=== PATIENT | female | born 1975 | race Hispanic/Latino ===

== ENCOUNTER → 2021-04-17 | Day surgery (SDC) | payer OTHER ==
[2021-04-14 13:05] LABS: ANION GAP 14.7 mmol/L (8-16); BLOOD UREA NITROGEN 5 mg/dL (7-26); BUN/CREATININE RATIO 7 (6-25); CALCIUM 9.4 mg/dL (8.4-10.2); CARBON DIOXIDE 26 mmol/L (22-29); CHLORIDE 102 mmol/L (98-107); EST GLOMERULAR FILTRATION RATE > 60 ML/MIN (60-); GLUCOSE 99 mg/dL (74-118); POTASSIUM 3.7 mmol/L (3.5-5.1); SODIUM 139 mmol/L (136-145)
[~2021-04-17] MED LIST: ACETAMINOPHEN 1000 MG/100 ML 100 ML IV ONE; ALEVE220 M1 PO; CLONAZEPAM1 MG PO; CRESTOR10 MG PO; DEXAMETHASONE SOD PHOS INJ 4 MG/ML VIAL ONE; FENTANYL CITRATE/PF 100MCG/2 ML INJ ONE; HYDROMORPHONE 1MG/1ML INJ ONE; IBUPROFEN800 MG PO; IRON PO; LIDOCAINE 2%/ EPINEPHRINE 20ML MDV ONE; LIDOCAINE HCL 2% LOCAL INJ 5 ML SDV VIAL INJ ONE; LISINOPRIL-HCT1 EAC1 PO; MIDAZOLAM HCL 2 MG/2 ML VIAL ONE; MORPHINE SULFATE INJ 10 MG/ML ONE; ONDANSETRON HCL INJ 2MG/ML 2ML 2 MG/ML VIAL ONE; OTEZLA30 MG PO; POVIDONE IODINE 0.05% 0.05 % ML PO ONE; PROPOFOL IV EMULSION 10 MG/ML 20 ML VIAL ONE; ROPIVACAINE 0.5% 5 MG/ML 30 ML SDV ONE; SEVOFLURANE INHAL SOLN 250 ML PEN BTL ONE; VITAMIN D PO
[2021-04-17 09:45] VITALS: BP 136/89
== END | disposition home or self-care (01) ==
LOC: OR 05:36
PROVIDERS: ATTEND Specialist
DX: S83.512A Sprain of anterior cruciate ligament of left knee, initial encounter (principal); S83.212A Bucket-handle tear of medial meniscus, current injury, left knee, initial encounter; M22.42 Chondromalacia patellae, left knee; X58.XXXA Exposure to other specified factors, initial encounter; Z01.812 Encounter for preprocedural laboratory examination; Z20.822 Contact with and (suspected) exposure to COVID-19; Z68.33 Body mass index [BMI] 33.0-33.9, adult
CPT/HCPCS: 29881; 29888; 36415; 80048; 81025; C1713 ×3; J0131; J0690; J1100; J1170; J2001 ×2; J2405; J2704; J2795; U0002; J2250; J2270; J3010

== ENCOUNTER → 2024-09-19 | Day surgery (SDC) | payer OTHER ==
[~2024-09-19] MED LIST changes: -ACETAMINOPHEN 1000 MG/100 ML 100 ML IV ONE; +AMLODIPINE BESYL5 MG PO; -DEXAMETHASONE SOD PHOS INJ 4 MG/ML VIAL ONE; -FENTANYL CITRATE/PF 100MCG/2 ML INJ ONE; -HYDROMORPHONE 1MG/1ML INJ ONE; -LIDOCAINE 2%/ EPINEPHRINE 20ML MDV ONE; -MORPHINE SULFATE INJ 10 MG/ML ONE; -ONDANSETRON HCL INJ 2MG/ML 2ML 2 MG/ML VIAL ONE; -POVIDONE IODINE 0.05% 0.05 % ML PO ONE; -ROPIVACAINE 0.5% 5 MG/ML 30 ML SDV ONE; -SEVOFLURANE INHAL SOLN 250 ML PEN BTL ONE; +TALTZ AUTO80 MG/1 ML; +TERBINAFINE HC250 MG PO
[2024-09-19] MEDS: LACTATED RINGER'S 1,000 ML ONE (13:11)
[2024-09-19 15:08] VITALS: TEMP 96.8
[2024-09-19 15:40] VITALS: BP 116/76; PULSE 79; RESP 18; O2SAT 100
== END | disposition home or self-care (01) ==
LOC: OR 10:47
PROVIDERS: ATTEND Internal Medicine Gastroenterology
DX: Z12.11 Encounter for screening for malignant neoplasm of colon (principal); D12.2 Benign neoplasm of ascending colon; K64.8 Other hemorrhoids; I10 Essential (primary) hypertension; E78.5 Hyperlipidemia, unspecified; F41.9 Anxiety disorder, unspecified; Z88.6 Allergy status to analgesic agent; Z01.810 Encounter for preprocedural cardiovascular examination; Z79.899 Other long term (current) drug therapy; Z68.33 Body mass index [BMI] 33.0-33.9, adult; Z80.0 Family history of malignant neoplasm of digestive organs
CPT/HCPCS: 45384; 93005; J2003; J2250; J2704; J7121; 45378